=== PATIENT | female | born 1965 | race Caucasian/White ===

== ENCOUNTER → 2018-02-19 | Outpatient (CLI) | payer BC | END | disposition home or self-care (01) | LOC: CFH 11:33 | PROVIDERS: ATTEND Otolaryngology Facial Plastic Surgery | DX: J34.1 Cyst and mucocele of nose and nasal sinus (principal); J34.2 Deviated nasal septum; J32.0 Chronic maxillary sinusitis | CPT/HCPCS: 70486 ==